=== PATIENT | female | born 1960 | race Caucasian/White ===

== ENCOUNTER 2020-04-14 06:46 | Day surgery (SDC) | payer BC ==
[2020-04-14] MEDS ORDERED: BUPIVACAINE 0.5% VIAL IJ ONE (06:51)
[2020-04-14] MEDS ORDERED: XYLOCAINE 1% HCL 20 ML MDV ONE (06:52)
[2020-04-14] MEDS ORDERED: Lactated Ringers 1,000 ML IV ONE (07:02)
[2020-04-14] MEDS ORDERED: CLINDAMYCIN-D5W 900 MG/50 ML*** 900 MG/50 ML BAG IV SCH (07:30)
[2020-04-14] MEDS ORDERED: Lactated Ringers 1,000 ML IV SCH (07:30)
[2020-04-14] MEDS ORDERED: Versed 2 MG/2 ML Injection ONE (08:30)
[2020-04-14] MEDS ORDERED: DIPRIVAN 200 MG/20 ML IV ONE ×2 (08:30→09:04)
[2020-04-14] MEDS ORDERED: SUBLIMAZE 100 MCG/2 ML ONE (08:30)
--- NOTE | 2020-04-14 09:41 | XRAY ---
Indication: Right ankle exostosis removal. Intraoperative fluoroscopy was provided for 39 seconds. 5 digital spot images of right ankle submitted for interpretation demonstrates posterior heel spur removal compared to right ankle radiograph March 28, 2020. Correlate with intraoperative findings/report.
[2020-04-14 10:26] VITALS: O2SAT 99
[2020-04-14 10:50] VITALS: BP 136/75; PULSE 79
--- NOTE | 2020-04-17 08:57 | OP ---
SURGERY DATE: 04/14/2020 0836 PREOPERATIVE DIAGNOSIS: Pain right ankle and exostosis of right ankle. POSTOPERATIVE DIAGNOSIS: Pain right ankle and exostosis of right ankle. PROCEDURE: Exostectomy right ankle. SURGEON: Bereket Motley DPM. PARTITION ASSEMBLER: None. ANESTHESIA: MAC plus local. HEMOSTASIS: A mid-calf tourniquet set to 250 mm Hg for 31 minutes. ESTIMATED BLOOD LOSS: Less than 10 cc. MATERIALS: 2-0 Vicryl and 3-0 Nylon. INJECTABLES: 20 cc of 1:1 mixture of 1% lidocaine plain and 0.5% Marcaine plain. DESCRIPTION OF PROCEDURE AND FINDINGS: Following assessment by the anesthesia team in the pre-assessment area, the patient was brought into the OR and placed under MAC sedation on the OR table in a supine position. Once sedation was administered the patient was given a local injection in a V-type block to the right ankle including nerves of the posterior tibial, superficial peroneal, deep peroneal and saphenous distribution. At this time the leg was then prepped and draped in a typical sterile fashion and the right lower extremity was lowered onto the surgical field. Prior to this there was a mid-calf tourniquet that was applied to the right calf and the tourniquet was set to 250 mm of Mercury. At this time the leg was exsanguinated and raised and the tourniquet was inflated. At this time attention was directed to the palpable mass at the anterior medial aspect of the right ankle at the level of the distal tibia. At this time a 15 blade was utilized to make an incision directly over the top of this structure. A combination of blunt and sharp dissection was utilized to dissect down to the level of bone making sure not to damage any neurovascular structures on the way. At this time the large saphenous vein was encountered and retracted out of the surgical field safely for the remainder of the procedure. At this time the bone was identified which looked to have a cartilaginous appearance on the extra-articular portion of the bone. At this time osteotome was utilized to plane the section of bone down and removed the lesion in toto. It measured approximately 11 mm x 9 mm x 4 mm in height. At this time the surgical wound was flushed with copious amounts of sterile saline. Any sharp edges were rasped using a hand rasp until a smooth surface was encountered. At this time copious amounts of sterile saline again were then utilized to flush the surgical site and a 2-0 Nylon was used to coapt the subcutaneous tissue together so as to relieve any pressure or tension on the surgical wound. At this time 3-0 Nylon was then utilized to coapt the edges of the skin in an everted-type fashion with a horizontal mattress-type stitch. At this time the tourniquet was deflated. Total tourniquet time was 31 minutes. At this time wet to dry lap were utilized to cleanse the surface. Betadine was painted to the surgical site. Adaptic was then applied, 4x4, Kerlix and EARLINE was used to secure the dressing. At this time the patient was placed in a short leg CAM walker which she is to ambulate in. The patient was reversed from anesthesia and handled the procedure without any significant complications, was returned to the postoperative anesthesia care unit with vital signs stable and vascular status intact. The patient handled the anesthesia and the procedure without complication. Postoperative orders as follows: 1. Keep post operative dressing clean dry and intact: * Do not alter the dressings in anyway without consulting Dr. [place] first. * Dressing is to remain dry throughout the post-operative course. 2. Elevate operative extremity above level of heart to reduce inflammation and pain 3. Ice behind Knee to reduce inflammation. 4. Weight-bearing status: * Full weight bearing to the non-operative extremity with the assistance of walker 5. Post-operative pain control: * Hydrocodone/Acetaminophen 5/325 mg [id number] for breakthrough pain alternate with Ibuprofen 600mg q6h 6. Post-operative Infection prophylaxis: * Keflex 500 mg q6h for 10 days 7. Post-operative deep vein thrombosis (DVT)/ blood clot prophylaxis: none 8. Follow up in clinic within 1 week of procedure (Clinic Phone # Provided Below) 9. Discharge patient to home
--- NOTE | 2020-04-17 09:49 | XRAY ---
39 seconds fluoroscopy time in surgery for right ankle exostosis.
== END 2020-04-14 11:05 | disposition home or self-care (01) ==
LOC: SDC 06:46
PROVIDERS: ATTEND Podiatrist Foot & Ankle Surgery
DX: M89.8X7 Other specified disorders of bone, ankle and foot (principal)
CPT/HCPCS: 73600; 76000; J2250; J2704; J3010

== ENCOUNTER 2021-01-05 06:08 | Day surgery (SDC) | payer BC ==
[2021-01-05] MEDS ORDERED: Lactated Ringers 1,000 ML IV SCH (06:30)
[2021-01-05] MEDS ORDERED: DIPRIVAN 200 MG/20 ML IV ONE (07:27)
[2021-01-05 08:36] VITALS: O2SAT 99
[2021-01-05 08:51] VITALS: BP 152/78; PULSE 76
--- NOTE | 2021-01-05 09:13 | OP ---
SURGERY DATE/TIME: 01/05/2021 0725 PREOPERATIVE DIAGNOSIS: History of colon polyps. POSTOPERATIVE DIAGNOSIS: Normal colon. PROCEDURE: Colonoscopy. SURGEON: Dr. Madison. ANESTHESIA: MAC. Medications given by anesthesia department. HISTORY: The patient is a 60 year-old white female who reports she has had two previous colonoscopies in which polyps have been found. She reports that it has been many years since her last examination. She cannot remember exactly when. The patient was described the risks of the procedure including the risk of perforation, phlebitis, untoward reaction to medication, bleeding and missed lesions. The patient verbalized her understanding and desired to have the procedure performed. DESCRIPTION OF PROCEDURE: The patient was given the medications by the anesthesia department. She had continuous pulse oximetry, ECG monitoring, intermittent blood pressure monitoring and tidal CO2 monitoring during the examination. She was placed in the left lateral decubitus position. A digital rectal examination revealed external hemorrhoids but otherwise normal and no masses. The flexible Olympus pediatric colonoscope was used to intubate the rectum. A view of the colon was developed sequentially to the cecum. Upon insertion and withdrawal, including a retroflex view in the rectum, no mucosal lesions were encountered. The scope was removed from the patient who tolerated the procedure well and was sent back to OP recovery in good condition. The prep was noted to be good.
== END 2021-01-05 08:55 | disposition home or self-care (01) ==
LOC: SDC 06:08
PROVIDERS: ATTEND Family Medicine
DX: Z09 Encounter for follow-up examination after completed treatment for conditions other than malignant neoplasm (principal); Z86.010 Personal history of colon polyps; K64.4 Residual hemorrhoidal skin tags
CPT/HCPCS: J2704